=== PATIENT | male | born 1995 | race Caucasian/White ===

== ENCOUNTER 2017-07-12 19:41 | Emergency (ER) | payer OTHER ==
[~2017-07-12] VITALS: Ht 165.1 cm; Wt 99.8 kg
[2017-07-12 20:04] LABS: ABSOLUTE EOSINOPHILS 0.3 thou/uL (0.0-0.7); ABSOLUTE LYMPHOCYTES 2.2 thou/uL (0.8-5.3); ABSOLUTE MONOCYTES 0.8 thou/uL (0.0-1.2); ABSOLUTE NEUTROPHILS 6.9 thou/uL (1.6-8.1); BASOPHILS 0.4 %; HEMATOCRIT 44.9 % (42.0-52.0); HEMOGLOBIN 15.6 gm/dL (14.0-18.0); LYMPHOCYTES 21.6 %; MCH 28.9 pg (26.0-34.0); MCHC 34.7 g/dL (28.0-37.0); MCV 83.4 fL (80.0-100.0); MONOCYTES 8.2 %; MPV 8.7 fl. (7.2-11.1); NUCLEATED RBCS 0 /100WBC; PLATELET COUNT* 246 thou/uL (150-400); POLYS 66.8 %; RBC 5.39 mil/uL (4.50-6.00); RDW-CV 13.1 % (10.5-14.5); WBC 10.3 thou/uL (4.0-11.0)
[2017-07-12 20:10] LABS: CALCIUM 9.3 mg/dL (8.5-10.1); CREATININE 1.1 mg/dL (0.6-1.3); POTASSIUM 3.8 mmol/L (3.5-5.1)
[2017-07-12 20:14] LABS: ALBUMIN 4.3 g/dL (3.4-5.0); TOTAL BILIRUBIN 0.6 mg/dL (<0.1-1.0); TOTAL PROTEIN 7.7 g/dL (6.4-8.2)
[2017-07-12 20:27] LABS: AMP/METHAMP Negative (Negative); BARBITURATES Negative (Negative); BENZODIAZEPINES Negative (Negative); COCAINE Negative (Negative); METHADONE Negative (Negative); OPIATES Negative (Negative); PCP Negative (Negative); THC Negative (Negative)
[2017-07-12 21:42] VITALS: BP 123/71
--- NOTE | 2017-07-13 09:56 | EKG ---
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
== END 2017-07-12 21:43 | disposition home or self-care (01) ==
LOC: M.ERS 19:41
PROVIDERS: Emergency Medicine
DX: R07.89 Other chest pain (principal); Z88.0 Allergy status to penicillin

== ENCOUNTER 2017-10-03 22:03 | Emergency (ER) | payer OTHER ==
[~2017-10-03] VITALS: Ht 167.6 cm; Wt 99.8 kg
[2017-10-03] MEDS ORDERED: PREDNISONE 20 M20 M1 PO (23:14)
[2017-10-03] MEDS ORDERED: VISTARIL 25 MG25 M1 PO (23:14)
[2017-10-03 23:48] VITALS: BP 109/65
== END 2017-10-03 23:49 | disposition home or self-care (01) ==
LOC: M.ERS 22:03
DX: R51 Headache (principal); J30.9 Allergic rhinitis, unspecified; F41.9 Anxiety disorder, unspecified; Z88.2 Allergy status to sulfonamides

== ENCOUNTER 2017-10-26 19:53 | Emergency (ER) | payer OTHER ==
[~2017-10-26] VITALS: Ht 167.6 cm; Wt 90.7 kg
[~2017-10-26 19:53] MED LIST: PREDNISONE 20 M20 M1 PO; VISTARIL 25 MG25 M1 PO
[2017-10-26] MEDS ORDERED: NOHOMEMEDICATIONS (20:04)
[2017-10-26 21:26] LABS: ABSOLUTE NEUTROPHILS 9.4 thou/uL (1.6-8.1); RBC 4.94 mil/uL (4.50-6.00)
[2017-10-26 21:27] LABS: ABSOLUTE BASOPHILS 0.1 thou/uL (0.0-0.2); ABSOLUTE EOSINOPHILS 0.2 thou/uL (0.0-0.7); ABSOLUTE LYMPHOCYTES 1.7 thou/uL (0.8-5.3); ABSOLUTE MONOCYTES 0.7 thou/uL (0.0-1.2); BASOPHILS 0.6 %; EOSINOPHILS 1.8 %; HEMATOCRIT 41.2 % (42.0-52.0); HEMOGLOBIN 14.1 gm/dL (14.0-18.0); MCH 28.6 pg (26.0-34.0); MCHC 34.3 g/dL (28.0-37.0); MCV 83.4 fL (80.0-100.0); MONOCYTES 5.7 %; MPV 8.5 fl. (7.2-11.1); NUCLEATED RBCS 0 /100WBC; PLATELET COUNT* 279 thou/uL (150-400); POLYS 77.9 %; RDW-CV 12.8 % (10.5-14.5); WBC 12.1 thou/uL (4.0-11.0)
[2017-10-26 22:05] LABS: INR 1.1; PROTIME 11.2 Seconds (9.20-11.50)
[2017-10-26 22:10] LABS: ANION GAP 9 mmol/L (7-16); BUN 10 mg/dL (7-18); CALCIUM 8.9 mg/dL (8.5-10.1); CHLORIDE 104 mmol/L (98-107); CO2 27 mmol/L (21-32); CREATININE 0.9 mg/dL (0.6-1.3); GLUCOSE 100 mg/dL (70-99); SODIUM 140 mmol/L (136-145)
[2017-10-26 22:23] LABS: LIPASE 150 U/L (73-393); TOTAL BILIRUBIN 0.7 mg/dL (<0.1-1.0)
[2017-10-26 22:24] LABS: ALKALINE PHOSPHATASE 72 U/L (46-116)
[2017-10-26 22:25] LABS: ALBUMIN 4.4 g/dL (3.4-5.0); SGOT 17 U/L (15-37); SGPT 23 U/L (30-65); TOTAL PROTEIN 7.6 g/dL (6.4-8.2); TROPONIN-I LEVEL <0.06 ng/mL (<0.06)
[2017-10-26 22:38] LABS: NT-PRO BRAIN NAT PEPTIDE 4 pg/mL (<300)
[2017-10-26] MEDS ORDERED: TRAMADOL 50 MG50 MG PO (22:45)
[2017-10-26] MEDS ORDERED: PEPCID40 MG PO (22:45)
[2017-10-26 23:19] VITALS: BP 115/54
--- NOTE | 2017-10-27 10:04 | EKG ---
[place] [address] ELECTROCARDIOGRAM REPORT Name: SEBASTIAN ZAMAN Room: 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1995 Requested By: Eloy Becerra Order Number: [id number] MD: Sumit Johansen Measurements Intervals [place] Rate: 101 P: 75 [place]: 148 QRS: 23 QRSD: 92 T: 24 QT: 341 QTc: 442 Interpretive Statements Sinus tachycardia Baseline wander in lead(s) V2 Compared to ECG 07/12/2017 19:47:36 Sinus rhythm no longer present Electronically Signed On 10-27-2017 10:04:47 CDT by Sumit Johansen [email or web address] <ELECTRONICALLY SIGNED> By: Sumit Johansen MD, [facility] 10/27/17 1004 00 00 Sumit Johansen MD, FACC /EPI
== END 2017-10-26 23:21 | disposition home or self-care (01) ==
LOC: M.ERS 19:53
PROVIDERS: Emergency Medicine
DX: R07.89 Other chest pain (principal); R11.2 Nausea with vomiting, unspecified; F17.210 Nicotine dependence, cigarettes, uncomplicated; Z88.2 Allergy status to sulfonamides; Z98.890 Other specified postprocedural states

== ENCOUNTER 2017-11-15 11:33 | Emergency (ER) | payer OTHER ==
[~2017-11-15] VITALS: Ht 167.6 cm; Wt 99.8 kg
[~2017-11-15 11:33] MED LIST changes: +NOHOMEMEDICATIONS; +PEPCID40 MG PO; +TRAMADOL 50 MG50 MG PO
[2017-11-15 12:16] LABS: ABSOLUTE EOSINOPHILS 0.2 thou/uL (0.0-0.7); ABSOLUTE LYMPHOCYTES 1.5 thou/uL (0.8-5.3); ABSOLUTE MONOCYTES 0.7 thou/uL (0.0-1.2); ABSOLUTE NEUTROPHILS 5.2 thou/uL (1.6-8.1); BASOPHILS 0.5 %; EOSINOPHILS 3.1 %; LYMPHOCYTES 19.2 %; MCHC 34.1 g/dL (28.0-37.0); MCV 84.9 fL (80.0-100.0); MONOCYTES 9.1 %; MPV 8.4 fl. (7.2-11.1); NUCLEATED RBCS 0 /100WBC; PLATELET COUNT* 255 thou/uL (150-400); POLYS 68.1 %; RBC 4.83 mil/uL (4.50-6.00); RDW-CV 13.3 % (10.5-14.5); WBC 7.7 thou/uL (4.0-11.0)
[2017-11-15 12:23] LABS: CALCIUM 8.4 mg/dL (8.5-10.1); CREATININE 0.9 mg/dL (0.6-1.3); POTASSIUM 3.9 mmol/L (3.5-5.1)
[2017-11-15 13:16] VITALS: BP 126/67
== END 2017-11-15 13:17 | disposition home or self-care (01) ==
LOC: M.ERS 11:33
PROVIDERS: Nurse Practitioner Family
DX: R20.0 Anesthesia of skin (principal); R20.2 Paresthesia of skin; F17.210 Nicotine dependence, cigarettes, uncomplicated; Z88.2 Allergy status to sulfonamides; Z90.89 Acquired absence of other organs

== ENCOUNTER 2017-11-19 18:52 | Emergency (ER) | payer OTHER ==
[~2017-11-19] VITALS: Ht 167.6 cm; Wt 99.8 kg
[2017-11-19 19:12] LABS: URINE BILIRUBIN NEGATIVE (Negative); URINE BLOOD NEGATIVE (Negative); URINE CLARITY CLEAR; URINE COLOR YELLOW; URINE GLUCOSE-RANDOM NEGATIVE (Negative); URINE KETONES NEGATIVE (Negative); URINE LEUKOCYTES NEGATIVE (Negative); URINE NITRITE NEGATIVE (Negative); URINE PROTEIN NEGATIVE (Negative); URINE SPECIFIC GRAVITY 1.025 (1.005-1.030); URINE UROBILINOGEN 0.2 E.U./dl (0.2-1.0)
[2017-11-19 19:21] LABS: ABSOLUTE EOSINOPHILS 0.3 thou/uL (0.0-0.7); ABSOLUTE LYMPHOCYTES 2.2 thou/uL (0.8-5.3); ABSOLUTE MONOCYTES 0.8 thou/uL (0.0-1.2); ABSOLUTE NEUTROPHILS 6.6 thou/uL (1.6-8.1); BASOPHILS 0.3 %; EOSINOPHILS 2.5 %; HEMATOCRIT 41.4 % (42.0-52.0); HEMOGLOBIN 14.1 gm/dL (14.0-18.0); LYMPHOCYTES 22.7 %; MCH 28.8 pg (26.0-34.0); MCV 84.6 fL (80.0-100.0); MONOCYTES 7.9 %; MPV 8.5 fl. (7.2-11.1); NUCLEATED RBCS 0 /100WBC; PLATELET COUNT* 263 thou/uL (150-400); POLYS 66.6 %; RBC 4.89 mil/uL (4.50-6.00); RDW-CV 13.4 % (10.5-14.5); WBC 9.9 thou/uL (4.0-11.0)
[2017-11-19 19:22] LABS: AMP/METHAMP Negative (Negative); BARBITURATES Negative (Negative); BENZODIAZEPINES Negative (Negative); COCAINE Negative (Negative); METHADONE Negative (Negative); OPIATES Negative (Negative); PCP Negative (Negative); THC Negative (Negative)
[2017-11-19 19:41] LABS: ANION GAP 4 mmol/L (7-16); BUN 9 mg/dL (7-18); CHLORIDE 104 mmol/L (98-107); CO2 31 mmol/L (21-32); GLUCOSE 98 mg/dL (70-99); POTASSIUM 3.5 mmol/L (3.5-5.1); SODIUM 139 mmol/L (136-145)
[2017-11-19 19:48] LABS: ALBUMIN 4.3 g/dL (3.4-5.0); ALKALINE PHOSPHATASE 71 U/L (46-116); SGOT 17 U/L (15-37); SGPT 23 U/L (30-65); TOTAL BILIRUBIN 0.8 mg/dL (<0.1-1.0); TOTAL PROTEIN 7.3 g/dL (6.4-8.2); TROPONIN-I LEVEL <0.06 ng/mL (<0.06)
[2017-11-19] MEDS ORDERED: TRAMADOL 50 MG50 MG PO (20:44)
[2017-11-19] MEDS ORDERED: NABUMETONE 750750 M1 PO (20:44)
[2017-11-19 20:54] VITALS: BP 124/80
--- NOTE | 2017-11-20 11:55 | EKG ---
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
== END 2017-11-19 20:55 | disposition home or self-care (01) ==
LOC: M.ERS 18:52
PROVIDERS: Nurse Practitioner Family
DX: M51.37 Other intervertebral disc degeneration, lumbosacral region (principal); R07.89 Other chest pain; R30.0 Dysuria; F17.220 Nicotine dependence, chewing tobacco, uncomplicated; Z88.2 Allergy status to sulfonamides; Z79.899 Other long term (current) drug therapy

== ENCOUNTER 2018-01-16 14:58 | Emergency (ER) | payer OTHER ==
[~2018-01-16] VITALS: Ht 165.1 cm; Wt 95.3 kg
[~2018-01-16 14:58] MED LIST changes: +NABUMETONE 750750 M1 PO
[2018-01-16 15:40] LABS: ABSOLUTE EOSINOPHILS 0.2 thou/uL (0.0-0.7); ABSOLUTE LYMPHOCYTES 1.8 thou/uL (0.8-5.3); ABSOLUTE MONOCYTES 0.7 thou/uL (0.0-1.2); ABSOLUTE NEUTROPHILS 4.1 thou/uL (1.6-8.1); BASOPHILS 0.5 %; EOSINOPHILS 2.3 %; HEMATOCRIT 43.7 % (42.0-52.0); HEMOGLOBIN 14.8 gm/dL (14.0-18.0); LYMPHOCYTES 26.5 %; MCH 28.5 pg (26.0-34.0); MCHC 33.9 g/dL (28.0-37.0); MCV 84.1 fL (80.0-100.0); MONOCYTES 10.6 %; MPV 8.5 fl. (7.2-11.1); NUCLEATED RBCS 0 /100WBC; PLATELET COUNT* 271 thou/uL (150-400); POLYS 60.1 %; WBC 6.8 thou/uL (4.0-11.0)
[2018-01-16 15:50] LABS: ANION GAP 9 mmol/L (7-16); BUN 9 mg/dL (7-18); CALCIUM 9.3 mg/dL (8.5-10.1); CHLORIDE 102 mmol/L (98-107); CO2 29 mmol/L (21-32); CREATININE 0.9 mg/dL (0.6-1.3); GLUCOSE 88 mg/dL (70-99); POTASSIUM 3.9 mmol/L (3.5-5.1); SODIUM 140 mmol/L (136-145)
[2018-01-16 15:57] LABS: ALBUMIN 4.2 g/dL (3.4-5.0); ALKALINE PHOSPHATASE 76 U/L (46-116); SGOT 14 U/L (15-37); SGPT 24 U/L (30-65); TOTAL BILIRUBIN 0.8 mg/dL (<0.1-1.0); TOTAL PROTEIN 7.3 g/dL (6.4-8.2); TROPONIN-I LEVEL <0.06 ng/mL (<0.06)
[2018-01-16 16:07] LABS: APTT 26.4 Seconds (25.0-31.3); INR 1.1; PROTIME 10.9 Seconds (9.20-11.50)
[2018-01-16] MEDS ORDERED: VENTOLIN HFA 1818 GM INH (16:22)
[2018-01-16 16:28] VITALS: BP 120/66
--- NOTE | 2018-01-17 10:21 | EKG ---
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 : 1995 Requested By: Lina Samuels Order Number: [id number] MD: Sumit Johansen Measurements Intervals [place] Rate: 79 P: 48 [place]: 153 QRS: 7 QRSD: 92 T: 13 QT: 360 QTc: 413 Interpretive Statements Sinus rhythm Compared to ECG 11/19/2017 19:18:53 Sinus arrhythmia no longer present Electronically Signed On 01-17-2018 10:21:20 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
== END 2018-01-16 16:29 | disposition home or self-care (01) ==
LOC: M.ERS 14:58
PROVIDERS: Nurse Practitioner Family
DX: M77.8 Other enthesopathies, not elsewhere classified (principal); J40 Bronchitis, not specified as acute or chronic; F41.9 Anxiety disorder, unspecified; F17.200 Nicotine dependence, unspecified, uncomplicated; Z88.2 Allergy status to sulfonamides

== ENCOUNTER 2018-02-08 14:57 | Emergency (ER) | payer OTHER ==
[~2018-02-08] VITALS: Ht 167.6 cm; Wt 95.3 kg
[~2018-02-08 14:57] MED LIST changes: +VENTOLIN HFA 1818 GM INH
[2018-02-08] MEDS ORDERED: AUGMENTIN 875-1 EACH PO (15:27)
[2018-02-08 15:36] VITALS: BP 139/95
== END 2018-02-08 15:37 | disposition home or self-care (01) ==
LOC: M.ERS 14:57
DX: S51.812A Laceration without foreign body of left forearm, initial encounter (principal); F17.220 Nicotine dependence, chewing tobacco, uncomplicated; Z88.2 Allergy status to sulfonamides; F41.9 Anxiety disorder, unspecified; Z90.89 Acquired absence of other organs; W54.0XXA Bitten by dog, initial encounter; Y92.007 Garden or yard of unspecified non-institutional (private) residence as the place of occurrence of the external cause; Y93.89 Activity, other specified; Y99.8 Other external cause status

== ENCOUNTER 2018-04-21 00:40 | Emergency (ER) | payer OTHER ==
[~2018-04-21] VITALS: Ht 167.6 cm; Wt 99.8 kg
[~2018-04-21 00:40] MED LIST changes: +AUGMENTIN 875-1 EACH PO
[2018-04-21 01:02] LABS: URINE BILIRUBIN NEGATIVE (Negative); URINE BLOOD NEGATIVE (Negative); URINE CLARITY CLEAR; URINE COLOR YELLOW; URINE GLUCOSE-RANDOM NEGATIVE (Negative); URINE KETONES NEGATIVE (Negative); URINE LEUKOCYTES-REFLEX NEGATIVE (Negative); URINE NITRITE-REFLEX NEGATIVE (Negative); URINE PROTEIN NEGATIVE (Negative); URINE SPECIFIC GRAVITY 1.025 (1.005-1.030)
[2018-04-21 01:10] LABS: ABSOLUTE BASOPHILS 0.1 thou/uL (0.0-0.2); ABSOLUTE EOSINOPHILS 0.3 thou/uL (0.0-0.7); ABSOLUTE MONOCYTES 0.9 thou/uL (0.0-1.2); ABSOLUTE NEUTROPHILS 6.8 thou/uL (1.6-8.1); BASOPHILS 0.7 %; EOSINOPHILS 2.6 %; HEMATOCRIT 42.1 % (42.0-52.0); HEMOGLOBIN 14.7 gm/dL (14.0-18.0); LYMPHOCYTES 27.3 %; MCH 28.8 pg (26.0-34.0); MCV 82.5 fL (80.0-100.0); MONOCYTES 8.3 %; NUCLEATED RBCS 0 /100WBC; PLATELET COUNT* 310 thou/uL (150-400); POLYS 61.1 %; RDW-CV 12.9 % (10.5-14.5); WBC 11.2 thou/uL (4.0-11.0)
[2018-04-21 01:20] LABS: PROTIME 10.7 Seconds (9.20-11.50)
[2018-04-21 01:29] LABS: ALBUMIN 4.1 g/dL (3.4-5.0); CALCIUM 8.9 mg/dL (8.5-10.1); CREATININE 0.9 mg/dL (0.6-1.3); POTASSIUM 3.7 mmol/L (3.5-5.1); TOTAL BILIRUBIN 0.5 mg/dL (<0.1-1.0); TOTAL PROTEIN 7.5 g/dL (6.4-8.2)
[2018-04-21] MEDS ORDERED: CARAFATE 1 GM TA1 GM PO (03:29)
[2018-04-21] MEDS ORDERED: OMEPRAZOLE40 MG PO (03:29)
[2018-04-21 03:40] VITALS: BP 113/38
== END 2018-04-21 03:40 | disposition home or self-care (01) ==
LOC: M.ERS 00:40
PROVIDERS: Personal Emergency Response Attendant
DX: K21.9 Gastro-esophageal reflux disease without esophagitis (principal); F41.9 Anxiety disorder, unspecified; F17.220 Nicotine dependence, chewing tobacco, uncomplicated; Z98.890 Other specified postprocedural states; Z88.2 Allergy status to sulfonamides

== ENCOUNTER 2018-12-21 12:44 | Emergency (ER) | payer OTHER ==
[~2018-12-21] VITALS: Ht 167.6 cm; Wt 108.9 kg
[~2018-12-21 12:44] MED LIST changes: +CARAFATE 1 GM TA1 GM PO; +OMEPRAZOLE40 MG PO
[2018-12-21 14:21] VITALS: BP 117/66
--- NOTE | 2018-12-21 15:41 | EKG ---
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
== END 2018-12-21 14:22 | disposition home or self-care (01) ==
LOC: M.ERS 12:44
DX: R07.89 Other chest pain (principal); F41.9 Anxiety disorder, unspecified; F17.290 Nicotine dependence, other tobacco product, uncomplicated; Z90.89 Acquired absence of other organs; Z88.2 Allergy status to sulfonamides

== ENCOUNTER 2020-02-10 17:55 | Emergency (ER) | payer OTHER ==
[~2020-02-10] VITALS: Ht 172.7 cm; Wt 105.7 kg
[2020-02-10] MEDS ORDERED: ZPAK PO ×2 (18:59→19:01)
[2020-02-10] MEDS ORDERED: PROAIR HFA8.5 GM INH ×2 (18:59→19:01)
[2020-02-10] MEDS ORDERED: MEDROLDOSEPACK PO ×2 (18:59→19:01)
[2020-02-10 19:07] VITALS: BP 149/91
--- NOTE | 2020-02-11 13:14 | EKG ---
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[facility] : 1995 Requested By: Randal Heck Order Number: [id number] MD: Sridhar Alberto Measurements Intervals [place] Rate: 97 P: 63 [place]: 153 QRS: 3 QRSD: 91 T: 25 QT: 335 QTc: 426 Interpretive Statements Sinus rhythm Compared to ECG 12/21/2018 12:52:39 Sinus tachycardia no longer present Electronically Signed On 02-11-2020 13:13:52 [employer] CARE WORKER by Sridhar Alberto [email or web address] <ELECTRONICALLY SIGNED> By: Sridhar Alberto MD, [facility] 02/11/20 1313 00 00 Sridhar Alberto MD, FAC /EPI
== END 2020-02-10 19:07 | disposition home or self-care (01) ==
LOC: M.ERS 17:55
DX: J06.9 Acute upper respiratory infection, unspecified (principal); R59.1 Generalized enlarged lymph nodes; F17.220 Nicotine dependence, chewing tobacco, uncomplicated; Z90.89 Acquired absence of other organs; Z88.2 Allergy status to sulfonamides; Z20.828 Contact with and (suspected) exposure to other viral communicable diseases